=== PATIENT | male | born 1985 | race Caucasian/White ===

== ENCOUNTER 2017-02-14 16:44 | Inpatient (IN) | payer BC, OTHER ==
[~2017-02-14] VITALS: Ht 180.3 cm; Wt 70.3 kg
[2017-02-14 17:00] VITALS: BP 144/84
--- NOTE | 2017-02-14 17:00 | NUR ---
INTAKE ASSESSMENT Patient is 31yo male patient presented for admission for supervised withdrawal from alcohol. Vital signs: 144/84, HR 120 (fluctuates to 113-120) , R 18, 02 sat 95% RA, pain 0/10. Patient denies any SOB and chest pain. Patient denies nausea, vomiting (last vomited yesterday), diarrhea, lightheadedness, headache, tremors, auditory or visual hallucinations. Patient reporst he always has restless legs. Patient denies history of seizure or fall. Patient states "I just want to be clean." Patient has no history of treatment program. Patient reports his last drink was today but unable to provide details (cannot state how much he drank today and what alcohol he drank. He states he drank "few or 3 sips today." Furthermore, patient was unable to state how much he drinks everyday or how long he has been using from this last use. Patient states he started drinking alcohol at age 25 and has been drinking daily. Patient states he has no alcohol preferences. Patient is alert and oriented X4, able to verbalize his concerns. He asked how he is going to eliminate alcohol from his body, if he is going to take any IV fluids or pills to eliminate the substances. Family members present at the intake office. Explained to patient (i.e q4h vital, medication handling including narcotics, disposal of any contraband. Patient has no home meds. was paged about patient's vitals signs. Patient appears to be stable to proceed with his admission to [facility] for further care.
[2017-02-14] MEDS ORDERED: diphenhydrAMINE 50 MG CAPSULE PO PRN (17:15)
[2017-02-14] MEDS ORDERED: ONDANSETRON 4 MG/2 ML VIAL IM PRN (17:15)
[2017-02-14] MEDS ORDERED: LORAZEPAM 1 MG TABLET PO PRN ×2 (17:15)
[2017-02-14] MEDS ORDERED: THIAMINE HCL 200 MG/2 ML VIAL IM ONE (17:15)
[2017-02-14] MEDS ORDERED: ONDANSETRON ODT 4 MG TAB.RAPDIS SL PRN (17:15)
[2017-02-14] MEDS ORDERED: MIRALAX 17 GM POWD.PACK PO PRN (17:15)
[2017-02-14] MEDS ORDERED: LORAZEPAM 2 MG/1 ML VIAL IM PRN (17:15)
[2017-02-14] MEDS ORDERED: ACETAMINOPHEN 325 MG TABLET PO PRN (17:15)
[2017-02-14] MEDS ORDERED: LOPERAMIDE HCL 2 MG CAPSULE PO PRN ×2 (17:15)
[2017-02-14] MEDS ORDERED: MAGNESIUM HYDROXIDE 30 ML LIQUID UDC PO PRN (17:15)
[2017-02-14] MEDS ORDERED: DICYCLOMINE HCL 20 MG TABLET PO PRN (17:15)
[2017-02-14] MEDS ORDERED: CLONIDINE HCL 0.1 MG TABLET PO PRN (17:15)
[2017-02-14] MEDS ORDERED: MAG HYDROX/AL HYDROX/SIMETH 30 ML LIQUID UDC PO PRN (17:15)
[2017-02-14] MEDS ORDERED: IBUPROFEN 400 MG TABLET PO PRN (17:15)
--- NOTE | 2017-02-14 18:10 | NUR ---
RN NOTE Patient arrived on the [facility] at 1801pm. Skin check done, small dry old scab on L elbow and back noted. Patient's weight was 155lbs. Patient unable to provide urine. Patient unable to respond to questions at this time. Patient requested to make a phone. He was assisted to make a phone. Thermodynamic Physicist was informed that patient wants to AMA. Patient is upset at this time. MD was notified.
--- NOTE | 2017-02-14 19:10 | NUR ---
Patient was seen by MD. Drill Bit Sharpener was informed by MD that patient is now willing to stay. Endorsed admission to oncoming RN.
--- NOTE | 2017-02-14 19:40 | NUR ---
AMA Note: Pt states that he wants to leave AMA d/t "I'm not ready". Pt educated about the risks and consequences of leaving AMA; pt verbalized understanding but still requested to leave. Multiple staff members spoke to pt without any success. Admission vital signs obtained, pt denies suicidal/homicidal ideations, Dr Lee is aware. Pt was given a list of community resources in case he is in need of help. All belongings returned to pt. Pt left the facility on 02/14/2017 at 1940.
[2017-02-14] MEDS ORDERED: LORAZEPAM 1 MG TABLET PO ONE (21:00)
[2017-02-15] MEDS ORDERED: MULTIVITAMINS,THERAPEUTIC TABLET PO SCH (09:00)
[2017-02-15] MEDS ORDERED: TUBERCULIN,PURIF.PROT.DERIV. 5 TU/0.1 ML TEST ID ONE (09:00)
[2017-02-15] MEDS ORDERED: THIAMINE HCL 100 MG TABLET PO SCH (09:00)
[2017-02-15] MEDS ORDERED: FOLIC ACID 1 MG TABLET PO SCH (09:00)
[2017-02-15] MEDS ORDERED: LORAZEPAM 1 MG TABLET PO SCH (09:00)
[2017-02-16] MEDS ORDERED: LORAZEPAM 1 MG TABLET PO SCH (09:00)
[2017-02-17] MEDS ORDERED: LORAZEPAM 1 MG TABLET PO SCH (09:00)
[2017-02-18] MEDS ORDERED: LORAZEPAM 1 MG TABLET PO SCH (09:00)
[2017-02-19] MEDS ORDERED: LORAZEPAM 1 MG TABLET PO SCH (09:00)
== END 2017-02-14 19:40 | disposition left against medical advice (07) | DRG 894 ==
LOC: SRC 16:44
PROVIDERS: ADMIT Internal Medicine; ATTEND Internal Medicine
PROC: HZ2ZZZZ Detoxification Services for Substance Abuse Treatment (ICD-10-PCS; principal; 2017-02-14)
DX: F10.220 Alcohol dependence with intoxication, uncomplicated (principal); Y90.9 Presence of alcohol in blood, level not specified; F90.9 Attention-deficit hyperactivity disorder, unspecified type; F41.9 Anxiety disorder, unspecified; F17.220 Nicotine dependence, chewing tobacco, uncomplicated; Z81.1 Family history of alcohol abuse and dependence; Z83.49 Family history of other endocrine, nutritional and metabolic diseases